=== PATIENT | male | born 1980 | race African-American/Black ===

== ENCOUNTER 2021-10-05 01:20 | Emergency (ER) | payer MEDICAID ==
[~2021-10-05] VITALS: Ht 182.9 cm; Wt 86.2 kg
[2021-10-05 01:39] VITALS: BP 108/45
[2021-10-05 01:48] VITALS: BP 108/45
--- NOTE | 2021-10-05 01:49 | NUR ---
PATIENT BIB [place] [employer]. PATIENT EXAMINED BY DR. ROGERS. PATIENT MEDICALLY CLEARED AND RELEASED IN CUSTODY IN STABLE CONDITION. ORIGINAL PRE-BOOK FORM GIVEN TO OFFICER JULIAN.
== END 2021-10-05 01:49 ==
LOC: MED 01:20
DX: M54.9 Dorsalgia, unspecified (principal); Z02.89 Encounter for other administrative examinations
CPT/HCPCS: 99283

== ENCOUNTER 2022-11-07 05:05 | Emergency (ER) | payer MEDICAID ==
[~2022-11-07] VITALS: Ht 188 cm; Wt 158.8 kg
[2022-11-07 05:25] VITALS: BP 145/63
--- NOTE | 2022-11-07 05:28 | NUR ---
TO LOBBY A/W BED VIA WHEELCHAIR
--- NOTE | 2022-11-07 05:45 | NUR ---
PATIENT CALL TO BE SEEN BY [facility] , NO RESPONSE PATIENT LEFT WITHOUT BEING SEEN BY DR. ARECHIGA. NO FURTHER CARE PROVIDED FOR PATIENT.
--- NOTE | 2022-11-07 05:55 | NUR ---
PT NOT FOUND IN LOBBY OR OUTSIDE. NO ANSWER ON NUMBER LISTED. PATIENT LEFT WITHOUT BEING SEEN BY DR. ARECHIGA. NO FURTHER CARE PROVIDED FOR PATIENT.
== END 2022-11-07 05:55 | disposition left against medical advice (07) ==
LOC: MED 05:05
DX: L53.9 Erythematous condition, unspecified (principal); M79.661 Pain in right lower leg; R22.41 Localized swelling, mass and lump, right lower limb; Z53.21 Procedure and treatment not carried out due to patient leaving prior to being seen by health care provider
CPT/HCPCS: 99281